=== PATIENT | male | born 1975 | race Caucasian/White ===

== ENCOUNTER → 2017-10-08 | Outpatient (CLI) | payer OTHER ==
[~2017-10-08] MED LIST: GADAVIST IV PRN
--- NOTE | 2017-10-08 06:34 | DIAGNOSTIC IMAGING REPORT ---
ORBITS FOR MRI HISTORY: 42 years-old Male FACIAL NUMBESS acute facial numbness with history of metal within the orbits. COMPARISON: None available TECHNIQUE: 3 views of the orbits FINDINGS: No metallic density foreign bodies identified. No orbital fracture identified. Imaged paranasal sinuses and mastoid air cells appear generally clear. IMPRESSION: No opaque foreign body identified. The above report was generated using voice recognition software. It may contain grammatical, syntax or spelling errors. Electronically signed by: Michael Cruz M.D. 10/08/2017 6:32 AM Dictated Date/Time: 10/08/2017 6:31 AM
--- NOTE | 2017-10-08 07:49 | DIAGNOSTIC IMAGING REPORT ---
MRI OF THE BRAIN WITHOUT AND WITH IV CONTRAST CLINICAL HISTORY: Facial numbness. COMPARISON STUDY: No previous studies for comparison. TECHNIQUE: Utilizing a 1.5 Katia magnet and dedicated coil, multiplanar, multiecho imaging of the brain was performed pre and postcontrast administration. IV administration of 8.5 mL of Gadavist contrast was uneventful. Thin cut pre and postcontrast imaging was performed through the face and skull base. FINDINGS: There are no foci of restricted diffusion to suggest acute infarct. No acute intracranial hemorrhage, midline shift or mass effect is present. Brain volume is normal. Ventricular system is normal. Basilar cisterns are patent. There are no extra-axial collections. Flow-voids for the major intracranial vessels are present. There is no intracranial mass or pathologic enhancement. There is no abnormal enhancement along the facial nerves. There is no mass within the internal auditory canals. Orbits are unremarkable. FLAIR and T2-weighted sequences demonstrate numerous white matter T2 hyperintense foci, predominantly subcortical in distribution. Calvarial signal is maintained. Sinuses and mastoid air cells are unremarkable. IMPRESSION: 1. No acute intracranial findings. 2. No intracranial mass or pathologic enhancement within the internal auditory canals. 3. Numerous white matter T2 hyperintense foci, predominantly subcortical in distribution. These are nonspecific and may reflect small vessel disease although are greater than expected for age. A remote demyelinating process is within the differential but considered less likely and the appearance is not typical for multiple sclerosis. Additional considerations include sequela of migraine headaches, vasculitis and Lyme disease. Electronically signed by: Tacho Rivera M.D. 10/08/2017 7:47 AM Dictated Date/Time: 10/08/2017 7:30 AM
== END | disposition home or self-care (01) ==
LOC: C.RAD 06:05
PROVIDERS: ATTEND Psychiatry & Neurology Neurology
DX: G51.0 Bell's palsy (principal); T15.90XA Foreign body on external eye, part unspecified, unspecified eye, initial encounter; X58.XXXA Exposure to other specified factors, initial encounter; R20.0 Anesthesia of skin